=== PATIENT | female | born 1955 | race Caucasian/White ===

== ENCOUNTER → 2017-05-29 | Outpatient (CLI) | payer OTHER ==
--- NOTE | 2017-05-29 14:49 | MAMMOGRAPHY REPORT ---
ULTRASOUND OF BOTH BREASTS: 05/29/2017 CLINICAL HISTORY: 62-year-old woman presents with bilateral breast implants problems. She reports th e right implant feels and looks like a round baseball and the left side is beginning to harden, simil ar to the right. This has been going on for approximately 1 year. The implants are proximally 30 ye ars old. She is experiencing being a pulling sensation on the right side extending into the right ax illa. No skin erythema or nipple discharge. COMPARISON: Comparison is made to exam dated: 01/31/2017 mammogram. FINDINGS: The patient's most recent prior mammogram from [facility] dated 01/31/2017 was reviewed and real time ultrasound was performed in the superior aspect of each breast and the right axilla. Throu ghout the right axilla in the area of pulling sensation described by the patient, sonographically nor mal tissue is seen. There is no evidence of suspicious lymphadenopathy or a suspicious solid or cyst ic mass. No ill-defined shadowing is identified in the axilla to suggest extracapsular rupture. Scanning along the right implant demonstrates a thin curvilinear echogenic band along the superficial aspect of the implant with posterior shadowing, suggesting a calcified capsule. This limits evaluat ion of the deeper implant to assess for possible rupture. However, there is possible serpiginous and curvilinear echogenic material in the right upper inner quadrant suggesting the possibility of intra capsular rupture. Additional scanning was performed along the superior aspect of the left breast imp lant and there is clear visualization of the fibrous capsule with less calcification comparing to the right. However a tram track curvilinear tubular structure is seen deep to the capsule and echogenic material is seen along the superficial aspect of the implant with the tram tracking tubular structur e coursing throughout, suggesting intracapsular rupture. No definite extracapsular rupture identifie d on the left on ultrasound. However, MRI is the optimal exam for evaluating implant integrity and t herefore a noncontrast breast MRI is recommended. IMPRESSION: ACR BI-RADS CATEGORY 0: INCOMPLETE EVALUATION: NEED ADDITIONAL IMAGING EVALUATION - FOLL OW-UP RECOMMENDED 1. Findings suggesting intracapsular implant rupture of the left breast implant, possibly the right as well, although the right implant is harder to assess on ultrasound given capsular calcification. Therefore, definitive characterization with a noncontrast breast MRI is recommended. 2. No suspicious abnormality, definite evidence of extracapsular silicone or suspicious lymphadenopa thy in the area of pulling sensation in the right axilla. Clinical follow-up is recommended. These results and recommendations were discussed with the patient at the time of the exam. Heather Cuevas M.D. ay/:05/29/2017 10:01:44 Development Technical Lead: Kitty MCNALLY(R)(Shyam), [facility] letter sent: Addl Imaging 0 BI-RADS Code: ACR BI-RADS Category 0: Incomplete Evaluation: Need Additional Imaging Evaluation
== END | disposition home or self-care (01) ==
LOC: C.MAMM 09:06
PROVIDERS: ATTEND Physician Assistant
DX: T85.9XXA Unspecified complication of internal prosthetic device, implant and graft, initial encounter (principal); Y83.1 Surgical operation with implant of artificial internal device as the cause of abnormal reaction of the patient, or of later complication, without mention of misadventure at the time of the procedure

== ENCOUNTER → 2017-06-12 | Outpatient (CLI) | payer OTHER ==
[2017-06-12 18:35] LABS: BLOOD UREA NITROGEN 10 mg/dl (7-18)
== END | disposition home or self-care (01) ==
LOC: C.LABMFLN 11:39
PROVIDERS: ATTEND Physician Assistant
DX: T85.44XA Capsular contracture of breast implant, initial encounter (principal); T85.49XA Other mechanical complication of breast prosthesis and implant, initial encounter; X58.XXXA Exposure to other specified factors, initial encounter

== ENCOUNTER → 2017-06-15 | Outpatient (CLI) | payer OTHER ==
--- NOTE | 2017-06-16 13:54 | MAMMOGRAPHY REPORT ---
BREAST MRI OF BOTH BREASTS : 06/15/2017 CLINICAL HISTORY: History of bilateral silicone implants implanted 35 years ago. Rule out implant ru pture. COMPARISON: Comparison is made to exams dated: 01/31/2017 mammogram and 05/29/2017 ultrasound - [facility]. Technique: The patient was placed prone in a dedicated breast imaging coil. Axial T2 fat saturation, T1-weighted fat saturation, T2 STIR water suppression, T2 fat saturation and silicone suppression, a nd sagittal T2 STIR water suppression and T2 fat saturation and silicone suppression sequences were o btained. No contrast was administered. Findings: Bilateral silicone implants are noted. There is intracapsular rupture of the left silicone implant, including linguini, subcapsular line, and keyhole signs. Additionally, extracapsular silicone is see n surrounding the left silicone implant, predominantly seen along the inferior aspect, with a small a mount of extracapsular silicone also seen along the superior posterior aspect of the implant as well as along the medial and lateral aspect of the implant posteriorly (series 7 images 26, 19, and 12). In the right breast, there are multiple radial folds within the right silicone implant. There is a f ocal area of numerous folds seen within the inferior posterior aspect of the implant on series 7 imag e 21, which could represent the linguini sign of a mild intracapsular rupture but could also represen t prominent radial folds (series 7 image 21). There is no evidence of extracapsular rupture of the r ight implant. Note that no contrast was given and therefore the exam is not tailored for evaluation of the breast p arenchyma. The visualized portions of the extramammary soft tissues are grossly unremarkable. IMPRESSION: ACR BI-RADS CATEGORY 2: BENIGN 1. Findings compatible with intracapsular and extracapsular rupture of the left breast silicone impl ant. 2. Findings are equivocal for mild intracapsular rupture of the right silicone implant versus multip le radial folds. No extracapsular silicone is seen within the right breast. iLlian Beltran M.D. /:06/15/2017 16:00:45 Level Vial Sealer: checker product design, [facility] BI-RADS Code: ACR BI-RADS Category 2: Benign
== END | disposition home or self-care (01) ==
LOC: C.MRI 09:27
PROVIDERS: ATTEND Physician Assistant
DX: T85.44XA Capsular contracture of breast implant, initial encounter (principal); T85.49XA Other mechanical complication of breast prosthesis and implant, initial encounter; X58.XXXA Exposure to other specified factors, initial encounter

== ENCOUNTER → 2017-07-26 | Outpatient (CLI) | payer OTHER ==
[~2017-07-26] MED LIST: CALC-354 PO; IBUP-1050 PO
[2017-07-26 13:16] LABS: BASO % 0.4 %; BASO ABS # 0.03 K/uL (0-0.2); EOS % 2.8 %; EOS ABS # 0.19 K/uL (0-0.5); HEMATOCRIT 38.4 % (37-47); HEMOGLOBIN 13.4 g/dL (12.0-16.0); IG# 0.01 K/uL (0.00-0.02); LYMPH % 28.6 %; LYMPH ABS # 1.93 K/uL (1.2-3.4); MEAN CORPUSCULAR HEMOGLOBIN 31.8 pg (25-34); MEAN CORPUSCULAR HGB CONC 34.9 g/dl (32-36); MEAN PLATELET VOLUME 10.9 fL (7.4-10.4); MONO % 4.9 %; MONO ABS # 0.33 K/uL (0.11-0.59); NEUT % 63.2 %; NEUT ABS # 4.25 K/uL (1.4-6.5); PLATELET COUNT 177 K/uL (130-400); RED CELL DISTRIBUTION WIDTH CV 12.2 % (11.5-14.5); RED CELL DISTRIBUTION WIDTH SD 41.1 fL (36.4-46.3); WHITE BLOOD COUNT 6.74 K/uL (4.8-10.8)
[2017-07-26 13:24] LABS: PTT PATIENT 28.9 SECONDS (21.0-31.0)
[2017-07-26 13:47] LABS: BLOOD UREA NITROGEN 17 mg/dl (7-18); CARBON DIOXIDE 29 mmol/L (21-32); CREATININE 0.66 mg/dl (0.60-1.20); GLUCOSE 101 mg/dl (70-99); POTASSIUM 3.8 mmol/L (3.5-5.1); SODIUM 134 mmol/L (136-145)
== END | disposition home or self-care (01) ==
LOC: C.LAB1850 12:00
PROVIDERS: ATTEND Physician Assistant
DX: Z01.818 Encounter for other preprocedural examination (principal); T85.44XA Capsular contracture of breast implant, initial encounter; T85.49XA Other mechanical complication of breast prosthesis and implant, initial encounter; X58.XXXA Exposure to other specified factors, initial encounter

== ENCOUNTER → 2017-08-08 | Day surgery (SDC) | payer OTHER ==
[2017-08-01 08:09] VITALS: Ht 153.7 cm; Wt 50.0 kg
[~2017-08-08] VITALS: Ht 153.7 cm; Wt 50.0 kg
[~2017-08-08] MED LIST changes: +ACETAMINOPHEN 1000 MG/100 ML IV IV ONE; +ACETAMINOPHEN 325 MG TAB PO PRN; +ATROPINE SULFATE 0.1 MG/ML 5ML SYR IV PRN; +BUPIVACAINE 0.25% 30 ML VIAL ONE; +CEFAZOLIN 2000MG IV PUSH 15 ML IV SCH; +EpHEDrine SULFATE INJ 50 MG/ML AMP IV PRN; +EpHEDrine SULFATE INJ 50 MG/ML AMP ONE; +FENTANYL CITRATE INJ 50 MCG/1 ML 2 ML VIAL IV PRN; +FENTANYL CITRATE INJ 50 MCG/1 ML 2 ML VIAL ONE; +GLYCOPYRROLATE INJ 0.2 MG/ML VIAL ONE; +HYDROmorphone INJ 1 MG/ML SYR IV PRN; +LACTATED RINGER'S 1000ML 1,000 ML IV SCH; +LIDOCAINE HCL 2% 2 ML VIAL (20MG/ML) ONE; +LIDOCAINE/EPINEPHRINE 1% 20 ML VIAL ONE; +METOCLOPRAMIDE HCL INJ 5 MG/ML 2 ML VIAL IV PRN; +MIDAZOLAM HCL 1 MG/ML 2ML VIAL ONE; +ONDANSETRON INJ 2 MG/ML 2 ML VIAL IV PRN; +ONDANSETRON INJ 2 MG/ML 2 ML VIAL ONE; +OXYCODONE/ACETAMINOPHEN 5-325 TAB PO PRN; +PHENYLEPHRINE 100MCG/ML 5ML SYR IV PRN; +PHENYLEPHRINE HCL INJ 10 MG/ML VIAL ONE; +PROMETHAZINE HCL INJ 12.5 MG in SODIUM CHLORIDE 0.9% 50ML 50 ML IV PRN; +PROPOFOL IV EMULSION 10 MG/ML 20 ML VIAL ONE; +SCOPOLAMINE 1.5 MG TDSY TD ONE; +SODIUM CHLORIDE 0.9% 1000ML 1,000 ML IV SCH; +VAREPAK2 PO
--- NOTE | 2017-08-08 12:04 | History & Physical Bridge - SC ---
H&P Re-Evaluation Bridge Note: I have examined the patient, reviewed the History & Physical and in the interval since the performance of the History & Physical I have noted the following changes of clinical significance: No changes noted
--- NOTE | 2017-08-08 14:47 | Discharge Instructions ---
Discharge Instructions Date of Service August 08, 2017. Admission Reason for Admission: Breast Implant Rupture Discharge Discharge Diagnosis / Problem: breast implant rupture Discharge Goals Goal(s): Decrease discomfort, Improve function Activity Recommendations Activity Limitations: per Instructions/Follow-up section ACTIVITY RECOMMENDATIONS: __Normal activities _x_No bending, lifting or straining __No driving __Driving allowed when you are off pain medications _x_Walking permitted __You should have help at home for ___ days DRESSINGS: __No dressings required _x_Keep dressings dry/in place until first office visit __Remove dressings ___ and leave dressings off _x_Apply ice ___ days __Remove dressings and reapply garment __Apply antibiotic ointment (Bacitracin, Neosporin, etc) to wounds 3-4 times/ day for 10 days BATHING: _x_Keep dressings dry _x_Sponge bathing permitted __Showering permitted _x_No swimming, hot tubs or soaking in a tub MEDICATIONS: Resume previous medications unless instructed otherwise by your surgeon. _x_Do not use aspirin, Motrin, Advil or Ibuprofen as these may promote bleeding. Please use Tylenol. _x_Prescription(s) provided: pain medication was provided at your last office visit OTHER INSTRUCTIONS: _x_Record drain output 2-3 times per day SPECIAL CARE INSTRUCTIONS: * It is normal to have a mild fever after surgery. If your temperature is higher than 101.5 degrees F, please call the office at [phone]. * Constipation is a typical side effect of pain medication. An over-the- counter stool softener will help relieve this. * Leaking around surgical drains may occur and should not cause concern. Sometimes these drains become clogged. If this happens, remove the bulb and milk the clot out of the tube, then replace the bulb. * Drainage from wounds after liposuction is normal and should be expected. Garments will become soiled. You should protect furniture and bedding. This drainage should mostly subside within 2-3 days. Leave garments in place unless instructed to remove them. * If you have unusual drainage from a wound or are concerned you have an infection or have any questions or concerns, please call the office at [phone]. FOLLOW UP VISIT: If not already scheduled, please call the office, , when you return home after surgery to schedule an appointment to be seen in __2_ days. . Current Hospital Diet Patient's current hospital diet: Discharge Diet Recommended Diet: Regular Diet Procedures Procedures Performed: Bilateral Breast Implant Removal And Capsulectomy Without Replacement Pending Studies Studies pending at discharge: yes List of pending studies: pathology Medical Emergencies . Who to Call and When: Medical Emergencies: If at any time you feel your situation is an emergency, please call 911 immediately. . Non-Emergent Contact Non-Emergency issues call your: Primary Care Provider, Surgeon . "Provider Documentation" section prepared by Darby Hogan. . [place] Drug Monitoring Program Search Results: no issues identified
--- NOTE | 2017-08-08 15:07 | [facility] Post Operative Brief Note ---
Immediate Operative Summary Operative Date August 08, 2017. Pre-Operative Diagnosis Capsular contracture of bilateral breast implants Post-Operative Diagnosis Same as preop Procedure(s) Performed Bilateral Breast Implant Removal And Capsulectomy Without Replacement Surgeon Dr. Benavidez Tinning Machine Set Up Operator Surgeon(s) Darby Hogan PA-C Estimated Blood Loss 10 ML Findings See Below bilateral intra and extracapsular rupture, extensive calc RT capsule Specimens A: Right breast explant and capsule B: Left breast explant and capsule C: Left breast scar D: Right breast scar Drains JPx2 Anesthesia Type General Complication(s) none Disposition Disposition: Recovery Room / PACU
[2017-08-08 15:53] VITALS: BP 118/76; PULSE 55; TEMP 36.3; O2SAT 96
--- NOTE | 2017-08-08 16:16 | Anesthesia Progress Nt - [facility] ---
Anesthesia Post Op Note Date & Time August 08, 2017 at 16:16 Vital Signs Pain Intensity: 0 Vital Signs Past 12 Hours Date Time Temp Pulse Resp B/P (MAP) Pulse Ox O2 Delivery O2 Flow Rate FiO2 08/08/17 15:53 36.3 55 16 118/76 (90) 96 Room Air 08/08/17 15:46 36.5 08/08/17 15:42 64 8 95 08/08/17 15:42 64 8 08/08/17 15:41 116/70 (75) 08/08/17 15:37 63 27 08/08/17 15:37 63 27 97 08/08/17 15:36 135/73 (80) 08/08/17 15:36 Room Air 08/08/17 15:32 68 14 100 08/08/17 15:32 70 14 08/08/17 15:31 130/71 (76) 08/08/17 15:27 82 24 100 08/08/17 15:27 80 24 08/08/17 15:26 113/71 (85) 08/08/17 15:22 55 14 100 08/08/17 15:22 56 14 08/08/17 15:21 112/66 (75) 08/08/17 15:17 52 10 99 08/08/17 15:17 52 10 08/08/17 15:16 120/65 (77) 08/08/17 15:15 117/68 (74) 08/08/17 15:12 36.2 61 12 117/68 100 Diffusion Mask 5 08/08/17 12:03 36.6 61 18 122/83 (96) 97 Room Air Notes Mental Status: alert / awake / arousable, participated in evaluation Pt Amnestic to Procedure: Yes Nausea / Vomiting: adequately controlled Pain: adequately controlled Airway Patency, RR, SpO2: stable & adequate BP & HR: stable & adequate Hydration State: stable & adequate Anesthetic Complications: no major complications apparent
--- NOTE | 2017-08-09 10:53 | OPERATIVE REPORT ---
DATE OF OPERATION: 08/08/2017 PREOPERATIVE DIAGNOSIS: Bilateral ruptured silicone breast implants with capsular contracture. POSTOPERATIVE DIAGNOSIS: Bilateral ruptured silicone breast implants with capsular contracture. PROCEDURE: Bilateral removal of ruptured silicone breast implants with complete capsulectomy. SURGEON: Dr. Tisha Benavidez ETYMOLOGY TEACHER: Darby Hogan PA-C ANESTHESIA: General. COMPLICATIONS: None. INDICATION FOR THE PROCEDURE: The patient is a 62-year-old female who presented to me with a history of breast augmentation performed in 1982 and about 1-2 years ago, the right breast implant started becoming hard and painful with discomfort in the left side as well. She has never had a breast MRI. Based on clinical exam, she had Dee grade 4 capsular contracture bilaterally. We did send her for MRI to document the extent of rupture. BRIEF DESCRIPTION OF THE PROCEDURE: The risks, benefits, and alternatives of the procedure were explained to the patient who agreed and signed consent. She was identified and marked in the preoperative holding area. She was brought to the operating room where she was positioned supine and placed under anesthesia without incident. The surgical site was prepped and draped sterilely. A time-out procedure was performed. I began with the left side. The prior incision was along the inframammary fold and I elected to use this incision in order to remove the implant. 1% lidocaine with epinephrine was used to anesthetize the planned incision as well as breast parenchyma. A 15 blade scalpel was used to make a narrow elliptical incision around the prior scar. The incision was deepened using electrocautery until the implant capsule was identified. The implant was noted to be in the subglandular plane. I was able to perform the majority of the capsular dissection of the implant in place and this was performed using electrocautery both anteriorly and posteriorly to the implant. There was evidence of extracapsular rupture. Capsular dissection was performed until I reached the 12 o'clock position which was difficult to adequately perform this with the implant in situ. Hemostasis was achieved throughout the dissection using a lighted retractor, insulated forceps, and electrocautery. When I could no longer continue the dissection, the capsule was opened and the implant was removed. The implant was grossly ruptured. There were no markings on the implant to identify the brand, style, or volume. Following removal of the implant, the remainder of the capsule was able to be dissected and removed in its entirety using electrocautery and an Allis clamp. The capsule was clamped down to keep it close during dissection. Hemostasis was achieved with electrocautery. The pocket was irrigated with Betadine soap. Saline was used to irrigate the pocket and it was packed using saline-soaked lap sponges and Marcaine. Attention was turned to the right breast. A similar procedure was undertaken. There was evidence of gross rupture on the right implant with significant calcification noted anteriorly and posteriorly as well as extracapsular rupture and some granulomatous tissue. The implant and shell were removed when I was unable to perform the dissection any further. Following this, the entire capsule was removed using electrocautery and an Allis clamp. Again, the pocket was irrigated in similar fashion and packed. There were multiple areas of calcification which were both manually extracted and dissected out when necessary. The pocket was irrigated in similar fashion and packed. I then returned to the left breast to inspect for hemostasis. Once hemostasis was noted, a 15 Kenyan Moncho drain was brought out through a separate stab incision and sutured into place using 3-0 nylon suture. Upon attempted approximation of the inframammary fold incision, a prominent standing cutaneous deformity was noted along the right side as well as some excess skin. Preoperatively, the nipple to inframammary fold distance was measured to be 10 cm and therefore I felt comfortable exercising about 1 cm of tissue from the superior aspect of this incision incorporating the dog ear in order to improve the shape of the breast. 3-0 Vicryl interrupted dermal sutures were placed followed by 3-0 Monocryl running subcuticular suture. Similarly, a small dog ear was encountered on the right side and this was excised in similar fashion. 3-0 Monocryl running subcuticular suture was placed to both incisions followed by Dermabond. Xeroform around the drains and dry dressings were placed followed by a surgical bra. The procedure was tolerated well. Estimated blood loss was about 10 mL. Darby Hogan was present and scrubbed throughout the entire dissection of both implants and assisted in retraction and assuring hemostasis. I attest to the content of the Intraoperative Record and any orders documented therein. Any exception s are noted below.
== END | disposition home or self-care (01) ==
LOC: X.SURG 11:46
PROVIDERS: ATTEND Plastic Surgery
DX: T85.49XA Other mechanical complication of breast prosthesis and implant, initial encounter (principal); T85.44XA Capsular contracture of breast implant, initial encounter; Y83.8 Other surgical procedures as the cause of abnormal reaction of the patient, or of later complication, without mention of misadventure at the time of the procedure; F41.9 Anxiety disorder, unspecified; Z85.41 Personal history of malignant neoplasm of cervix uteri; Z90.710 Acquired absence of both cervix and uterus; Z98.890 Other specified postprocedural states; Z83.3 Family history of diabetes mellitus; Z72.0 Tobacco use; Z91.030 Bee allergy status

== ENCOUNTER 2018-06-26 06:36 | Inpatient (IN) ==
--- NOTE | 2018-06-12 09:12 | Anesthesiology Consultation ---
Date of Service June 12, 2018 Assessment & Plan (1) Encounter for pre-operative examination: Chart Review Chart Review: Acceptable Risk for Surgery and Patient seen in Pre Admission Testing Teaching & Discussion Instructed NPO after midnight before surgery, except medications with 15 cc of water. Medication instructions provided according to the PAT guidelines. History Surgery Operation Date: 06/26/18 10:40 Proposed Procedures p Right Total Hip Replacement - Darrell Holden MD Height/Weight Height: 5 ft Weight: 50.8 kg Allergies Allergy/AdvReac Type Severity Reaction Status Date / Time bee venom protein (honey bee) Allergy Severe Anaphylaxis Verified 06/12/18 09:05 Medications Home Medications Medication Instructions Recorded Confirmed Last Taken Collegan Supplement 1 cap PO QAM 06/06/18 06/06/18 Unknown calcium-mag oxide-vitamin D3 15 ml PO QAM 06/06/18 06/06/18 Unknown epinephrine [EpiPen] 0.3 mg IM Q3H PRN 06/06/18 06/06/18 Unknown ibuprofen 200 mg PO QID PRN 06/06/18 06/06/18 Unknown Past Medical History Medical History History of cervical cancer APPROX 40 YEARS AGO Hyponatremia Osteopenia Past Surgical History Surgical History History of breast augmentation History of breast implant removal History of colonoscopy History of dilatation and curettage X2 History of hysterectomy History of mastoidectomy HX OF RUBELLA A CHILD, PT STATES "SETTLED IN MY EARS" History of myringotomy History of vein stripping HX OF EVLA S/T VERICOSE VEINS Hx of LASIK Past Anesthesia History No Hx of Anesthesia Complications and No Family Hx of Anesthesia Complications History of PONV No Motion Sickness Screening History of Motion Sickness: No Social History Smoking Status: Former smoker tobacco type: cigarettes Smoking cigarettes per day: HX OF 7 CIGARETTES PER DAY X45 YEARS Do You Dip or Chew Tobacco: No Smoking End Date: QUIT JULY 2017 (still occ single cig) Hx Alcohol Use: No Alcohol Intake Frequency Comment: 0 Hx Substance Use: No substance use type: does not use Exercise / Class Metabolic Activity II 4-5 Yardwork/Stairs/Walk up hill (Denies CP or SOB with stairs) Review of Systems Pt denies any recent chest pain, shortness of breath, palpitations, cough, fever or URI. +sinus congestion/head cold for the past two weeks. Physical Exam Vital Signs BP: 116/69 P: 53bpm SPO2: 98% RA T: 97.7 F R: 18 ENMT Mouth: + dental restorations (few gold caps and few crowns); no chipped teeth and no loose teeth Thyromental Distance: < 3.5 Finger Breadths (3) Mallampati Class: II Neck normal visual inspection; neck extension not limited Respiratory normal respiratory effort Auscultation: lungs clear to auscultation bilaterally Cardiovascular Rate/Rhythm: regular rhythm and + bradycardic Heart Sounds: no murmur Vessels: no carotid bruit Extremities: no edema Testing Electrocardiogram Date: 06/12/18 Findings: + SB @ (48) Chest X-Ray Date: 06/12/18 Findings: + NAD Laboratory Results 06/12/18 09:32 06/12/18 09:32 Blood Type A Positive 06/12/18 09:32 Antibody Screen NEGATIVE 06/12/18 09:32 PT 10.6 Seconds (9.0-12.0) 06/12/18 09:32 INR 1.0 (0.9-1.1) 06/12/18 09:32 APTT 30.5 Seconds (21.0-31.0) 06/12/18 09:32
--- NOTE | 2018-06-12 09:19 | PAT Medication Instructions ---
Medication Instructions Date of Service June 12, 2018 Home Medications Collegan Supplement 1 cap PO QAM calcium-mag oxide-vitamin D3 15 ml PO QAM epinephrine [EpiPen] 0.3 mg IM Q3H PRN ibuprofen 200 mg PO QID PRN Continue as directed epinephrine [EpiPen] 0.3 mg IM Q3H PRN ASK your surgeon for instructions ibuprofen 200 mg PO QID PRN STOP taking 2 weeks before surgery Collegan Supplement 1 cap PO QAM DO NOT take the morning of surgery calcium-mag oxide-vitamin D3 15 ml PO QAM Other Notes If you have any questions please call us at [phone] or [phone] or [phone] or [phone]
--- NOTE | 2018-06-12 10:00 | XRay Report ---
XR chest Pre-admission PA/Lat CLINICAL HISTORY: pat preoperative evaluation COMPARISON STUDY: No previous studies for comparison. FINDINGS: The bones soft tissues and hemidiaphragms are normal. The cardiomediastinal silhouette is n ormal. The lungs are clear. The pulmonary vasculature is normal. IMPRESSION: Negative chest. The above report was generated using voice recognition software. It may contain grammatical, syntax or spelling errors. Electronically signed by: Damon Jaramillo M.D. 06/12/2018 9:58 AM
[2018-06-12 10:40] LABS: Basophils # (auto) 0.04 K/uL (0-0.2); Basophils % (auto) 0.7 %; Eosinophils # (auto) 0.17 K/uL (0-0.5); Eosinophils % (auto) 2.8 %; Hematocrit (blood only) 42.1 % (37-47); Hemoglobin 14.5 g/dL (12.0-16.0); Immature Granulocytes # (auto) 0.01 K/uL (0.00-0.02); Immature Granulocytes % (auto) 0.2 %; Lymphocytes # (auto) 2.07 K/uL (1.2-3.4); Lymphocytes % (auto) 33.7 %; Mean Corpuscular Hgb Conc 34.4 g/dL (32-36); Mean Corpuscular Volume 90.1 fL (80-100); Mean Platelet Volume 10.9 fL (7.4-10.4); Monocytes % (auto) 8.1 %; Neutrophils # (auto) 3.36 K/uL (1.4-6.5); Neutrophils % (auto) 54.5 %; Platelet Count 201 K/uL (130-400); RDW Coefficient of Variation 12.6 % (11.5-14.5); RDW Standard Deviation 41.2 fL (36.4-46.3); Red Blood Count 4.67 M/uL (4.2-5.4); White Blood Count 6.15 K/uL (4.8-10.8)
[2018-06-12 10:48] LABS: BUN Creatinine Ratio 16.3 (10-20); Calcium 9.3 mg/dl (8.5-10.1); Creatinine Clr Calc Pharmacy 58.2 ml/min; Est GFR (Non-African American) 89.8; Potassium 4.5 mmol/L (3.5-5.1)
[2018-06-12 11:06] LABS: Partial Thromboplastin Ratio 1.1; Partial Thromboplastin Time 30.5 Seconds (21.0-31.0); Prothrombin Time 10.6 Seconds (9.0-12.0)
--- NOTE | 2018-06-23 22:20 | History and Physical Report ---
DATE OF ADMISSION: 06/26/2018 CHIEF COMPLAINT: Right hip and leg pain. HISTORY OF PRESENT ILLNESS: A 63-year-old female from [place] who presents for surgical treatment of her right hip. She has a very long history of right hip and leg pain. This has gradually gotten worse over time. She has been through extensive conservative treatment. This has been bothering her for years. She has been through chiropractic treatments as well as other modalities including oral medicines as well as therapy. She has difficulty walking any distance at all. She has nighttime pain. She has difficulty putting her shoes and socks on. She did have an x-ray initially at the chiropractor, which showed advanced arthritis and he has referred her for surgical treatment. PAST MEDICAL HISTORY: 1. Depression. 2. Cervical cancer. 3. Low back pain/sciatica. 4. History of asthma. PAST SURGICAL HISTORY: 1. Myringotomy tube placement. 2. Mastoidectomy. 3. Breast implant. 4. Tonsillectomy 5. D and C. 6. Hysterectomy. ALLERGIES: None. CURRENT MEDICATIONS: 1. Epinephrine p.r.n. for anaphylaxis. 2. Liquid calcium. 3. Ibuprofen. SOCIAL HISTORY: A 63-year-old female. The patient is . [place]. Rare alcohol intake. One child. FAMILY HISTORY: Significant for heart disease, diabetes and lung cancer. REVIEW OF HISTORY: Negative for diabetes, neurologic problems, vascular problems or bleeding disorders. Denies any chronic chest pain or shortness of breath. No history of DVT or PE. PHYSICAL EXAMINATION: GENERAL: Reveals a pleasant, thin, healthy appearing, middle-aged female. Looks to be in good health. HEENT: Benign. NECK: Supple. No lymphadenopathy. LUNGS: Clear to auscultation. HEART: Regular rate and rhythm. ABDOMEN: Soft, nontender, nondistended. EXTREMITIES: Grossly neurovascularly intact except as follows: Examination of the right leg reveals the patient walks with slight bit of a limp. Leg lengths clinically appear pretty equal. She feels like the right one is a little short. She does have pain with any type of hip motion. She has some lateral knee pain as well. No knee effusion. Range of motion to internal rotation is neutral, external rotation is 20 degrees. Negative straight leg raise. X-RAYS: X-rays of the right hip were reviewed. Shows advanced right hip DJD. She has got complete loss of superior joint space. Cystic change of the femoral head and acetabulum. She has got a very shallow acetabulum. A little bit of subluxation of the right hip compared to the left. X-rays lumbar spine were reviewed as well. She had some mild lumbar spondylosis. ASSESSMENT: A 63-year-old female with advanced right hip degenerative joint disease. She has failed conservative treatment and would like to have the right hip replaced. PLAN: We will take him to the operating room and do a right total hip replacement. The risks and benefits of this procedure were explained to the patient include but not limited to DVT, PE, , infection, neurological injury, vascular injury, bleeding problem, pain, limited range of motion, stiffness, failure to relieve her symptoms, incomplete relief of symptoms, fracture, leg length inequality, nerve palsy, incomplete relief of symptoms, etc. The patient understands and desires to proceed. Informed consent was obtained. I did talk to her about leg length inequality and will do the best we can to make her leg lengths as equal as possible. As far as discharge plans, she is hoping to be discharged to home using [facility]. Her is not around much, but I think she is going to be home for the first week to help her in the immediate postoperative period.
[~2018-06-26 06:36] MED LIST changes: -ACETAMINOPHEN 1000 MG/100 ML IV IV ONE; -ACETAMINOPHEN 325 MG TAB PO PRN; +ACETAMINOPHEN 500 MG TAB PO SCH; -ATROPINE SULFATE 0.1 MG/ML 5ML SYR IV PRN; -BUPIVACAINE 0.25% 30 ML VIAL ONE; -CALC-354 PO; +CEFAZOLIN 2000MG 2,000 MG/15 ML SYR IV SCH; -CEFAZOLIN 2000MG IV PUSH 15 ML IV SCH; -EpHEDrine SULFATE INJ 50 MG/ML AMP IV PRN; -EpHEDrine SULFATE INJ 50 MG/ML AMP ONE; +FAMOTIDINE 20 MG TAB PO SCH; -FENTANYL CITRATE INJ 50 MCG/1 ML 2 ML VIAL IV PRN; -FENTANYL CITRATE INJ 50 MCG/1 ML 2 ML VIAL ONE; +GABAPENTIN 300 MG x 2 PO SCH; -GLYCOPYRROLATE INJ 0.2 MG/ML VIAL ONE; -HYDROmorphone INJ 1 MG/ML SYR IV PRN; -IBUP-1050 PO; -LACTATED RINGER'S 1000ML 1,000 ML IV SCH; -LIDOCAINE HCL 2% 2 ML VIAL (20MG/ML) ONE; -LIDOCAINE/EPINEPHRINE 1% 20 ML VIAL ONE; +LR 500ML BOLUS, THEN 15ML/HR IV SCH; +LR 60ML/HR IV SCH; +METOCLOPRAMIDE HCL 10 MG TABLET PO SCH; -METOCLOPRAMIDE HCL INJ 5 MG/ML 2 ML VIAL IV PRN; -MIDAZOLAM HCL 1 MG/ML 2ML VIAL ONE; -ONDANSETRON INJ 2 MG/ML 2 ML VIAL IV PRN; -ONDANSETRON INJ 2 MG/ML 2 ML VIAL ONE; -OXYCODONE/ACETAMINOPHEN 5-325 TAB PO PRN; -PHENYLEPHRINE 100MCG/ML 5ML SYR IV PRN; -PHENYLEPHRINE HCL INJ 10 MG/ML VIAL ONE; -PROMETHAZINE HCL INJ 12.5 MG in SODIUM CHLORIDE 0.9% 50ML 50 ML IV PRN; -PROPOFOL IV EMULSION 10 MG/ML 20 ML VIAL ONE; -SCOPOLAMINE 1.5 MG TDSY TD ONE; +SCOPOLAMINE 1.5 MG TDSY TD SCH; -SODIUM CHLORIDE 0.9% 1000ML 1,000 ML IV SCH; -VAREPAK2 PO
[2018-06-26] MEDS ORDERED: BUPIVACAINE 0.5 % 5 MG/1 ML PF 10ML VIAL ONE (06:37)
--- NOTE | 2018-06-26 06:52 | History & Physical Bridge Note ---
Date of Service June 26, 2018 History & Physical Bridge Note I have examined the patient, reviewed the History & Physical and in the interval since the performance of the History & Physical I have noted the following changes of clinical significance: no changes noted
[2018-06-26] MEDS: TRANEXAMIC ACID 1,000 MG **IV Pre-op IV SCH ×2 (07:27→08:25)
[2018-06-26] MEDS ORDERED: PROPOFOL IV EMULSION 10 MG/ML 20 ML VIAL IV ONE (07:56)
[2018-06-26] MEDS ORDERED: LIDOCAINE HCL 2% 2 ML VIAL/AMP(20MG/ML) INFIL ONE (07:56)
[2018-06-26] MEDS ORDERED: KETAMINE HCL INJ 50 MG/ML 10 ML VIAL ONE (07:57)
[2018-06-26] MEDS ORDERED: MIDAZOLAM HCL 1 MG/ML 2ML VIAL ONE (07:57)
[2018-06-26] MEDS ORDERED: MoRPHine SULFATE PF 1 MG/ML 10 ML AMP/VIAL ONE (07:57)
[2018-06-26] MEDS ORDERED: fentaNYL citrate 100 MCG/2 ML VIAL ONE (07:57)
[2018-06-26] MEDS ORDERED: NALOXONE HCL 0.08 MG in SYRINGE 1.8 ML IV PRN (08:05)
[2018-06-26] MEDS ORDERED: NALOXONE HCL 0.4 MG/1 ML VIAL/CARP IV PRN ×2 (08:05→11:13)
[2018-06-26] MEDS ORDERED: DiphenhydrAMINE HCL 50 MG/ML VIAL IV PRN (08:05)
[2018-06-26] MEDS ORDERED: MoRPHine SULFATE PF 1 MG/ML 10 ML AMP/VIAL INT SPINAL ONE (08:05)
[2018-06-26] MEDS ORDERED: NALOXONE HCL 1 MG in SODIUM CHLORIDE 0.9% 1000ML 1,000 ML IV PRN (08:05)
[2018-06-26] MEDS ORDERED: NALBUPHINE HCL INJ 10 MG/ML AMP IV PRN (08:05)
[2018-06-26] MEDS ORDERED: ePHEDrine sulfate 50 MG/ML AMP IV PRN (08:05)
[2018-06-26] MEDS ORDERED: NO NARCOTICS OR SEDATIVES SCH (08:15)
[2018-06-26] MEDS ORDERED: SODIUM CHLORIDE 0.9% 1000ML 1,000 ML IV SCH (08:15)
[2018-06-26] MEDS ORDERED: BUPIVACAINE/EPINEPHRINE 0.5% MPF 1:200,000 30 ML VIAL ONE (08:35)
[2018-06-26] MEDS ORDERED: BACITRACIN INJ 50,000 UNIT VIAL ONE (08:35)
[2018-06-26] MEDS ORDERED: ePHEDrine sulfate 50 MG/ML SYR ONE (09:26)
--- NOTE | 2018-06-26 10:21 | Post Operative Brief Note ---
Immediate Post Op Note v1 Date of Surgery June 26, 2018 Pre & Post Diagnosis Operation Date: 06/26/18 08:50 Pre-Op Diagnosis: Right Hip Advanced Degenerative Joint Disease Post-Op Diagnosis: Right Hip Advanced Degenerative Joint Disease Procedure Operation Date: 06/26/18 08:50 Actual Procedures p Right Total Hip replacement- uncemented(Right) - Darrell Holden MD Surgeon Darrell Holden MD Nurse Ob Nasir, PAC Estimated Blood Loss 200 Findings Consistent with Post-Op Diagnosis Fluids 700 cc Specimens Right Femoral HEad Drains Alexandre Catheter (16 Bangl[place] Alexandre catheter inserted by Maggi Mabry RN without difficulty, obtained clear yellow urine, output to be monitored by anesthesia) Anesthesia Type Spinal MAC Complications none Disposition Accompanied Patient To Recovery: Yes Disposition: Recovery Room
--- NOTE | 2018-06-26 10:51 | XRay Report ---
AP PELVIS, CROSSTABLE LATERAL RIGHT HIP History: Right total hip arthroplasty. Degenerative arthritis. Postop. FINDINGS: The patient is status post a right total hip arthroplasty. The hardware is intact. No fract ure or dislocation. Skin ginny are in place. IMPRESSION: Right total hip arthroplasty. No evidence for hardware complication Electronically signed by: Luis Brantley M.D. 06/26/2018 10:50 AM
--- NOTE | 2018-06-26 11:01 | Anesthesiology Progress Note ---
Date of Service June 26, 2018 Anesthesia Post Procedure Vital Signs Vital Signs: Temp Pulse Pulse Resp BP Pulse Ox 06/26/18 10:45 64 14 111/72 100 06/26/18 10:35 36.3 C L 76 16 117/69 99 06/26/18 10:25 74 18 121/66 99 06/26/18 10:19 36.5 C 75 16 109/60 99 06/26/18 06:50 36.4 C L 63 18 146/76 H 97 Notes Mental Status: alert / awake / arousable and participated in evaluation Patient Amnestic to Procedure: Yes Nausea / Vomiting: adequately controlled Pain: adequately controlled Airway Patency, RR, SpO2: stable & adequate BP & HR: stable & adequate Hydration State: stable & adequate Neuraxial Anesthesia: was administered and sensory block is resolving Anesthetic Complications: no major complications apparent
[2018-06-26] MEDS ORDERED: ALUMINUM/MAGNESIUM SUSP 30 ML UDC PO PRN (11:13)
[2018-06-26] MEDS ORDERED: BISACODYL 10 MG SUPP PR PRN (11:13)
[2018-06-26] MEDS ORDERED: METOCLOPRAMIDE HCL INJ 5 MG/ML 2 ML VIAL IV PRN (11:13)
[2018-06-26] MEDS ORDERED: EPINEPHRINE ADULT AUTO-INJECT 0.3 MG SYR IM PRN (11:13)
[2018-06-26] MEDS ORDERED: MAGNESIUM HYDROXIDE SUSP 30 ML UDC PO PRN (11:13)
[2018-06-26] MEDS ORDERED: ONDANSETRON INJ 2 MG/ML 2 ML VIAL IV PRN (11:13)
--- NOTE | 2018-06-26 12:26 | Operative Report ---
DATE OF OPERATION: 06/26/2018 STAFF: Darrell Holden MD VULCANIZER RUBBER PLATE: RITO Payne PREOPERATIVE DIAGNOSIS: Right hip degenerative joint disease. POSTOPERATIVE DIAGNOSIS: Right hip degenerative joint disease. PROCEDURE PERFORMED: Right ceramic on highly cross-linked polyethylene total hip arthroplasty. COMPLICATIONS: None. ESTIMATED BLOOD LOSS: 200 mL. FLUID REPLACEMENT: 700 mL crystalloid fluid replacement. ANESTHESIA: Spinal. DRAINS: None. SPECIMENS: Right femoral head sent for pathology. OPERATIVE INDICATIONS: The patient is a 63-year-old very active female who has had a several-year history of right pain and discomfort that has gotten significantly worse over the past year. She failed conservative treatment. X-rays show advanced right hip DJD. She elected to proceed with surgical treatment. OPERATIVE FINDINGS: Operative findings revealed advanced right hip DJD. She had a large hip joint effusion. She had some anterior osteophytes of the acetabulum. She had grade 4 [id number] disease of the femoral head and acetabulum. OPERATIVE IMPLANTS: Operative implants consisted of: 1. A Biomet G7 size 50 mm acetabular shell. 2. 6.5 cancellous acetabular screws, 1 at 35 mm in length and 1 at 20 mm in length. 3. An apex hole eliminator. 4. A highly cross-linked polyethylene liner with a 50 mm outer diameter and 32 mm inner diameter. 5. DePuy Corail size 10 KLA femoral stem. 6. A +1/32 mm ceramic articular ball. OPERATIVE PROCEDURE: The patient was taken to the operating room, identified and placed on the operative table in supine position. All contact areas were appropriately padded. IV antibiotics were provided by anesthesia team. A spinal anesthetic had been implemented in the holding area. Alexandre catheter was placed in sterile fashion. The patient was then placed in the left lateral decubitus position. An axillary roll was placed. [facility] was used for positioning. The right hip and leg were then prepped and draped in usual sterile fashion. A posterolateral approach to the right hip was then performed through a curvilinear incision centered over the greater trochanter. Sharp dissection was carried through subcutaneous tissue down to the level of the IT band and gluteal fascia. The IT band and gluteal fascia were incised longitudinally in line with skin incision. The underlying greater trochanteric bursa was excised. The piriformis and external rotators were tagged and taken off the posterior aspect of the hip joint capsule. Great care was taken throughout the procedure to protect the sciatic nerve at all times. Posterior capsulotomy was then performed leaving a large flap for later repair. Hip was internally rotated and dislocated. Femoral neck osteotomy cut was made with the final cut 8 mm above the lesser trochanter. Femoral head was removed and sent for pathology. The femur was retracted anteriorly. Attention was then drawn to the acetabulum. The acetabulum labrum was excised. The pulvinar fat was excised. Sequential reaming of the acetabulum was then performed beginning with size 43 and progressing up to 49. I did touch the outside the acetabulum with a 50 reamer, so I could get the cup in. A size 50 Biomet G7 acetabular shell was then placed in about 40 degrees of lateral opening and 20 degrees of anteversion. It was fixed with two 6.5 cancellous acetabular screws. An anterior osteophyte was removed off the acetabulum. Trial liner was placed. Attention was then drawn to the femur. The proximal femur was entered with a cookie cutter followed by canal finder. I then broached beginning with a size 8 and progressing up to a 10. Cancellous bone was pretty soft, but we had good proximal fit with this and I thought any further enlargement with the risk fracture. We had good rotational stability. The calcar reamer was used to smoothen off the calcar. I then trialed the hip and the +5 articular ball just seemed a bit too tight and too long. The +1 seemed to fit appropriately and had full stability and full extension and external rotation and flexion to 90 degrees, internal rotation to [address] I elected to place these implants. All trial implants were removed. An apex hole eliminator was placed. Highly cross-linked polyethylene liner was placed. A DePuy size 10 KLA femoral stem was then impacted in position. A +1/32 mm ceramic articular ball was placed. Hip was located and once again found to be stable. Attention was then drawn toward closing. The wound was irrigated with copious amounts of pulsatile lavage solution. I did inject locally with 40 mL of 0.5% Marcaine with epinephrine. The posterior capsule and external rotators were then repaired through drill holes and the posterior trochanter with #2 Ti-Cron suture. The IT band and gluteal fascia were then closed with #1 PDS suture in running fashion. The subcutaneous tissues closed with 2 layers with the deep layer #1 Vicryl suture and the subcutaneous tissue with 2-0 Dexon suture in a buried interrupted fashion. Skin was then closed with skin ginny. Leg was then cleaned, dried and a sterile dressing of Xeroform, 4 x 4, sterile ABD pad and foam tape was applied. The patient was then transferred to the recovery room in stable condition. The patient tolerated the procedure well with no complication. All needle and sponge counts were correct at the end of the operation. I attest to the content of the Intraoperative Record and any orders documented therein. Any exception s are noted below.
[2018-06-26] MEDS: SODIUM CHLORIDE 0.9% 1000ML 1,000 ML IV SCH ×2 (12:58→23:27)
--- NOTE | 2018-06-26 13:05 | Progress Note ---
DATE: 06/26/2018 SUBJECTIVE: A 63-year-old white female postop from a right hip replacement. She is doing well. Not having any pain yet. No chest pain or shortness of breath. Not feeling dizzy or lightheaded. OBJECTIVE: VITAL SIGNS: Temperature 36.4. Vital signs stable. GENERAL: Physical examination reveals a pleasant, middle-aged female. She is sitting up in her bed and talking to her . She looks comfortable. LUNGS: Clear to auscultation. HEART: Has a regular rate and rhythm. ABDOMEN: Soft, nontender, nondistended. EXTREMITIES: Grossly neurovascularly intact except as follows: Examination of the right lower extremity reveals the leg to be well aligned. Leg lengths appear clinically equal. Hip is located. Thigh is soft and supple. Dressing is clean, dry and intact. She can dorsiflex and plantarflex her foot appropriately. She is neurologically intact. X-RAYS: X-rays of the right hip from recovery room reviewed. It shows right uncemented total hip arthroplasty. Components looked to be in good position. No signs of problems. ASSESSMENT: A 63-year-old white female postop from right hip replacement, doing well. Pain is controlled. Hip is located. She is neurologically intact. PLAN: 1. DVT prophylaxis including thigh-high TEDs, SCDs, and aspirin twice a day. 2. PT/OT. Weight bear as tolerated. Right total hip protocol. 3. Pain control, doing well with current pain regimen. 4. IV antibiotics x24 hours. 5. Disposition: Plan to discharge to home likely with some home health once adequately recovered.
[2018-06-26] MEDS: LACTATED RINGER'S 500 ML IV PRN ×2 (13:33→15:50)
[2018-06-26] MEDS: ACETAMINOPHEN 500 MG TAB PO SCH ×2 (14:23→22:10)
[2018-06-26] MEDS: KETOROLAC 30 MG/ML VIAL IV SCH ×2 (14:24→18:30)
[2018-06-26] MEDS ORDERED: KETOROLAC 30 MG/ML VIAL IV PRN (15:34)
[2018-06-26] MEDS ORDERED: HYDROmorphone INJ 0.5 MG/0.5 ML SYR IV PRN (15:34)
[2018-06-26] MEDS ORDERED: MEPERIDINE HCL 25 MG/ML CARP IV PRN (15:34)
[2018-06-26] MEDS ORDERED: MoRPHine SULFATE 2 MG/ML CARP IV PRN (15:34)
[2018-06-26] MEDS: CEFAZOLIN 1000MG 1,000 MG/7.5 ML SYR IV SCH (16:11)
[2018-06-26] MEDS: CHECK SCOPOLAMINE PATCH PLACEMENT SCH (16:12)
[2018-06-26] MEDS ORDERED: TRANEXAMIC ACID 1,000 MG in 0.9 % SODIUM CHLORIDE 100 ML IV SCH (16:30)
[2018-06-26] MEDS: ASCORBIC ACID 500 MG TAB PO SCH (18:29)
[2018-06-26] MEDS: FERROUS GLUCONATE 324 MG TAB PO SCH (18:30)
[2018-06-26] MEDS: DOCUSATE SODIUM 100 MG CAP PO SCH (20:55)
[2018-06-26] MEDS: SENNA 8.6 MG TAB PO SCH (20:55)
[2018-06-26] MEDS: ASPIRIN 81 MG ECTAB PO SCH (20:55)
[2018-06-27] MEDS: CEFAZOLIN 1000MG 1,000 MG/7.5 ML SYR IV SCH (00:07)
[2018-06-27] MEDS: KETOROLAC 30 MG/ML VIAL IV SCH ×4 (00:07→17:45)
[2018-06-27] MEDS: CHECK SCOPOLAMINE PATCH PLACEMENT SCH (00:08)
[2018-06-27] MEDS ORDERED: DC INTRASPINAL MORPHINE ONE (02:06)
[2018-06-27] MEDS ORDERED: TRAMADOL HCL 50 MG TABLET PO PRN (02:07)
[2018-06-27] MEDS ORDERED: HYDROmorphone INJ 0.5 MG/0.5 ML SYR IV PRN (02:07)
[2018-06-27 05:56] LABS: Basophils # (auto) 0.01 K/uL (0-0.2); Basophils % (auto) 0.2 %; Eosinophils # (auto) 0.19 K/uL (0-0.5); Eosinophils % (auto) 3.8 %; Hematocrit (blood only) 29.1 % (37-47); Hemoglobin 9.9 g/dL (12.0-16.0); Lymphocytes # (auto) 1.18 K/uL (1.2-3.4); Lymphocytes % (auto) 23.3 %; Mean Corpuscular Volume 90.7 fL (80-100); Mean Platelet Volume 10.2 fL (7.4-10.4); Monocytes # (auto) 0.37 K/uL (0.11-0.59); Monocytes % (auto) 7.3 %; Neutrophils # (auto) 3.31 K/uL (1.4-6.5); Neutrophils % (auto) 65.4 %; Platelet Count 134 K/uL (130-400); RDW Coefficient of Variation 12.8 % (11.5-14.5); RDW Standard Deviation 42.6 fL (36.4-46.3); Red Blood Count 3.21 M/uL (4.2-5.4); White Blood Count 5.06 K/uL (4.8-10.8)
[2018-06-27] MEDS: ACETAMINOPHEN 500 MG TAB PO SCH ×3 (06:16→22:19)
[2018-06-27 06:34] LABS: BUN Creatinine Ratio 18.2 (10-20); Calcium 7.6 mg/dl (8.5-10.1); Creatinine Clr Calc Pharmacy 76.2 ml/min; Est GFR (African American) 116.5; Est GFR (Non-African American) 100.5; Potassium 4.3 mmol/L (3.5-5.1)
--- NOTE | 2018-06-27 08:17 | Anesthesiology Progress Note ---
Date of Service June 27, 2018 Anesthesia Post Procedure Vital Signs Vital Signs: Temp Pulse Pulse Pulse Resp BP BP 06/27/18 07:28 36.5 C 45 L 14 95/61 L 06/27/18 06:40 66 95/60 L 06/27/18 05:09 58 L 90/55 L 06/27/18 02:48 36.2 C L 57 L 14 86/44 L 06/27/18 02:00 16 06/27/18 01:00 14 06/27/18 00:00 58 L 16 90/58 L 06/26/18 23:05 46 L 89/48 L 06/26/18 23:00 36.4 C L 52 L 16 79/51 L 06/26/18 22:10 58 L 14 89/47 L 06/26/18 21:00 36.6 C 57 L 16 86/40 L 06/26/18 19:40 90/46 L 06/26/18 19:37 36.3 C L 49 L 16 80/46 L 06/26/18 19:00 36.3 C L 52 L 16 90/53 L 06/26/18 18:18 50 L 90/49 L 06/26/18 17:57 36.4 C L 51 L 16 85/47 L 06/26/18 17:06 43 L 14 93/55 L 06/26/18 16:20 42 L 98/59 L 06/26/18 16:09 36.2 C L 42 L 16 89/53 L 06/26/18 15:33 42 L 14 81/40 L 06/26/18 15:20 06/26/18 14:42 89/55 L 06/26/18 14:00 58 L 16 91/51 L 06/26/18 13:30 88/48 L 06/26/18 13:00 14 06/26/18 12:59 63 14 94/60 L 06/26/18 12:14 58 L 16 91/54 L 06/26/18 12:00 16 06/26/18 11:30 57 L 18 92/55 L 06/26/18 11:00 36.4 C L 77 16 106/67 06/26/18 10:45 64 14 111/72 06/26/18 10:35 36.3 C L 76 16 117/69 06/26/18 10:25 74 18 121/66 06/26/18 10:19 36.5 C 75 16 109/60 Pulse Ox Pulse Ox 06/27/18 07:28 92 06/27/18 06:40 06/27/18 05:09 06/27/18 02:48 97 06/27/18 02:00 98 06/27/18 01:00 98 06/27/18 00:00 98 06/26/18 23:05 06/26/18 23:00 99 06/26/18 22:10 97 06/26/18 21:00 97 06/26/18 19:40 06/26/18 19:37 99 06/26/18 19:00 97 06/26/18 18:18 06/26/18 17:57 98 06/26/18 17:06 100 06/26/18 16:20 06/26/18 16:09 100 06/26/18 15:33 99 06/26/18 15:20 100 06/26/18 14:42 06/26/18 14:00 97 06/26/18 13:30 06/26/18 13:00 98 06/26/18 12:59 98 06/26/18 12:14 99 06/26/18 12:00 99 06/26/18 11:30 98 06/26/18 11:00 99 06/26/18 10:45 100 06/26/18 10:35 99 06/26/18 10:25 99 06/26/18 10:19 99 Pain Intensity Right Hip: Pain Intensity: 5 Notes Mental Status: alert / awake / arousable Patient Amnestic to Procedure: Yes Nausea / Vomiting: adequately controlled Pain: improving with treatment Airway Patency, RR, SpO2: stable & adequate BP & HR: stable & adequate Hydration State: stable & adequate Neuraxial Anesthesia: was administered and sensory block resolved Anesthetic Complications: no major complications apparent
[2018-06-27] MEDS: DOCUSATE SODIUM 100 MG CAP PO SCH ×2 (08:41→20:11)
[2018-06-27] MEDS: ASCORBIC ACID 500 MG TAB PO SCH ×2 (08:41→17:45)
[2018-06-27] MEDS: ASPIRIN 81 MG ECTAB PO SCH ×2 (08:41→20:11)
[2018-06-27] MEDS: FERROUS GLUCONATE 324 MG TAB PO SCH ×2 (08:41→17:45)
[2018-06-27] MEDS: MULTIVITAMIN TAB PO SCH (08:42)
[2018-06-27] MEDS ORDERED: [UNRECOGNIZED DRUG - OTHER] PO SCH (09:00)
[2018-06-27] MEDS ORDERED: CALCIUM PO SCH (09:00)
[2018-06-27] MEDS ORDERED: [UNRECOGNIZED DRUG - OTHER] PO SCH (09:00)
[2018-06-27] MEDS ORDERED: MAGNESIUM OXIDE PO SCH (09:00)
--- NOTE | 2018-06-27 15:14 | Progress Note ---
DATE: 06/27/2018 SUBJECTIVE: A 63-year-old female postop day 1 from right hip replacement. She is doing well. Blood pressure has been low, but she has not had any symptoms. She normally runs a bit low. No chest pain or shortness of breath. Therapy has gone well. Not feeling dizzy or lightheaded. OBJECTIVE: VITAL SIGNS: Temperature 36.7. Vital signs stable. Blood pressure 92/53. GENERAL: Physical examination shows a pleasant, middle-aged female. She is sitting up in bed, looks comfortable. EXTREMITIES: Examination of the right hip and leg reveals the dressing to be clean, dry and intact. Leg lengths were equal. Thigh is soft and supple. Hip is located. She is neurologically intact. LABORATORY DATA: Hemoglobin 9.9. Hematocrit 29.1. Electrolytes are stable. ASSESSMENT: A 63-year-old female postop day 1 from right hip replacement. She is doing well. Pain is controlled. Hip is located. She is neurologically intact. She has been a bit hypotensive, but asymptomatic. She did have some blurry vision yesterday, but that is all resolved. PLAN: 1. DVT prophylaxis including thigh-high TEDs, SCDs, and aspirin twice a day. 2. PT/OT. Weight bear as tolerated. Right total hip protocol. 3. Pain control, doing well with current pain regimen. 4. Disposition: Plan to discharge to home with some home health once adequately recovered.
[2018-06-27] MEDS: SENNA 8.6 MG TAB PO SCH (20:11)
[2018-06-28] MEDS: KETOROLAC 30 MG/ML VIAL IV SCH ×2 (00:34→05:49)
[2018-06-28] MEDS: ACETAMINOPHEN 500 MG TAB PO SCH (06:27)
--- NOTE | 2018-06-28 07:37 | Progress Note ---
DATE: 06/28/2018 SUBJECTIVE: A 63-year-old white female postop day 2 from right hip replacement. She is doing well. Pain is controlled. No chest pain or shortness of breath. Getting around pretty well. OBJECTIVE: VITAL SIGNS: Temperature 36.6. Vital signs stable. Blood pressure improved at 112/65. GENERAL: Physical examination shows a pleasant, healthy female. She was walking around her room this morning essentially independently. EXTREMITIES: Examination of the right hip reveals the incision to be clean, dry and intact. Leg lengths were equal. Minimal swelling. Thigh is soft and supple. She is neurologically intact. Hip is located. ASSESSMENT: A 63-year-old white female postop day 2 from right hip replacement, doing well. Pain is controlled. Hip is located. She is anemic, but without symptoms. PLAN: 1. DVT prophylaxis including thigh-high TEDs, SCDs, and aspirin twice a day. 2. PT/OT. Weight bear as tolerated. Right total hip protocol. 3. Pain control, doing well with current pain regimen. 4. Anemia. Continue iron supplementation. 5. Disposition: Plan to discharge to home with some home health later today.
[2018-06-28] MEDS: FERROUS GLUCONATE 324 MG TAB PO SCH (07:58)
[2018-06-28] MEDS: ASCORBIC ACID 500 MG TAB PO SCH (07:58)
[2018-06-28] MEDS: MULTIVITAMIN TAB PO SCH (08:00)
[2018-06-28] MEDS: DOCUSATE SODIUM 100 MG CAP PO SCH (08:00)
[2018-06-28] MEDS: ASPIRIN 81 MG ECTAB PO SCH (08:00)
[2018-06-28 08:02] VITALS: BP 114/64; TEMP 97.7; O2SAT 97
[2018-06-28 10:41] VITALS: PULSE 64
--- NOTE | 2018-06-29 08:43 | Discharge Summary ---
Date of Service July 04, 2018 Discharge Data Consultations 06/27/18 08:00 Consult Case Management - Discharge Planning Routine Procedures Performed Operation Date: 06/26/18 08:50 Actual Procedures p Right Total Hip replacement- uncemented(Right) - Darrell Holden MD
--- NOTE | 2018-07-03 16:35 | Discharge Summary ---
ADMITTING PHYSICIAN AND SURGEON: Dr. Darrell Holden. ADMITTING DIAGNOSIS: Right hip degenerative joint disease. SURGERY PERFORMED: Right total hip arthroplasty. SECONDARY DIAGNOSES: Depression, cervical cancer, low back pain, sciatica, asthma. CONSULTS: None obtained. HISTORY AND PHYSICAL EXAMINATION: Well documented in the patient's chart. HOSPITAL COURSE: The patient was admitted on 06/26/2018 and underwent total hip arthroplasty, tolerated the procedure well. There were no complications. She was transferred to the PACU postoperatively and later to the orthopedic floor for further care. She was given Ancef for antibiotic prophylaxis, OMAR stockings, SCDs and aspirin for DVT prophylaxis. Hemoglobin, hematocrit and vital signs were monitored during her hospital stay and remained stable. She developed some postoperative anemia, did not require any blood transfusions. There were no complications. On postoperative day 2, she was tolerating a regular diet, pain was controlled with oral pain medicine. She was participating in physical therapy. On postop day 2, she was discharged home, set up with home health services. She was given printed discharge instructions including new prescriptions for extra strength Tylenol, aspirin, iron supplement, tramadol. Continue her home medicines. Continue physical therapy, weightbearing as tolerated, OMAR stockings, total hip precautions. Follow up approximately 2 weeks postoperatively or sooner if there are any problems or concerns.
== END 2018-06-28 11:03 | disposition home health service (06) | DRG 470 ==
LOC: ASU 06:36 → 3E 10:25